=== PATIENT | female | born 2000 | race African-American/Black ===

== ENCOUNTER 2022-02-15 08:41 | Outpatient (CLI) | payer MEDICAID, SELFPAY ==
[2022-02-15 15:13] LABS: HCG Quantitative* < 2.39 mIU/mL
[2022-02-15 15:19] LABS: HIV 1/2/P24 Combo Screen* Negative (Negative)
[2022-02-15 16:06] LABS: Chlamydia DNA Amplified* NOT DETECTED (No Detected); GC DNA Amplified* NOT DETECTED (No Detected)
== END 2022-02-15 08:42 | disposition home or self-care (01) ==
PROVIDERS: PCP Physician Assistant Medical; Visit Provider Registered Nurse
DX: Z11.3 Encounter for screening for infections with a predominantly sexual mode of transmission (principal); Z11.4 Encounter for screening for human immunodeficiency virus [HIV]
CPT/HCPCS: 84702; 86703; 87491; 87591